=== PATIENT | male | born 1970 | race Caucasian/White ===

== ENCOUNTER → 2017-10-12 | Outpatient (CLI) | payer OTHER ==
--- NOTE | 2017-10-12 10:41 | US ---
EXAM DESCRIPTION: Extremity,Lower [place] Arteries CLINICAL HISTORY: 46 years Male, ATHEROSCLEROSIS OF OTHER ARTERIES COMPARISON: None. TECHNIQUE: Bilateral lower extremity arterial Doppler study utilizing grayscale, color Doppler, and spectral pulse Doppler evaluation. FINDINGS: Bilateral lower extremity arterial Doppler evaluation demonstrates patent vessels throughout both lower extremities with preserved triphasic waveform throughout from the level of the common femoral artery to the level of the trifurcation vessels including the distal posterior tibial artery and dorsalis pedis artery on both sides. Arterial peak velocities are normal throughout except for modestly diminished a peak systolic velocity in the right dorsalis pedis artery. Triphasic waveform is preserved suggesting a mild to modest stenosis at this level. IMPRESSION: Essentially normal examination except for diminished velocities in the right dorsalis pedis artery suggesting mild stenosis distally in this vessel but with preserved triphasic wave pattern. Normal appearance on the left. Electronically signed by: Saravanan Kelley MD 10/12/2017 10:39 AM CDT
== END ==
LOC: US 08:10
PROVIDERS: ATTEND Family Medicine
DX: I70.8 Atherosclerosis of other arteries (principal); I73.9 Peripheral vascular disease, unspecified

== ENCOUNTER → 2019-04-12 | Outpatient (CLI) | payer OTHER ==
--- NOTE | 2019-04-12 11:59 | MRI ---
Study: MRI of the Right Foot. MRI of the Right Ankle. Indication: PAIN IN RIGHT ANKLE Technique: Multiplanar, multi sequence MRI of the right foot and MRI of the right ankle were obtained without intravenous contrast. Comparison: None. Findings: Subcutaneous edema lateral aspect of the ankle. No acute fracture or talar coalition. Tenosynovitis of the peroneal tendons noted with high grade tendinosis of both tendons extending from the posterior margin of the lateral malleolus to their distal insertion sites. There is longitudinal split tearing of the brevis tendon and mild attenuation. High-grade tendinosis of the longus tendon at the cuboid notch with adjacent reactive marrow edema of the cuboid at this site. No complete transection of either tendon. The peroneal tubercle is mildly prominent. Ankle mortise alignment normal. No advanced osteoarthritis. Plantar fascia intact. Trace tenosynovitis medial tendons. Anterior tendons intact. Low-grade insertional Achilles tendinosis with trace retrocalcaneal bursal fluid. Prior sprain anterior talofibular ligament. No acute fluid filled tear of the medial or lateral ankle ligaments. Impression: Tenosynovitis and high-grade tendinosis of the peroneal tendons with longitudinal split tearing of the brevis tendon and severe tendinosis of the longus tendon at the cuboid notch. No transection. Marrow edema within the cuboid. Additional findings as above. Electronically signed by: Hudson Kong MD 04/12/2019 11:57 AM [facility]
== END ==
LOC: MRI 07:41
PROVIDERS: ATTEND Family Medicine
DX: M65.871 Other synovitis and tenosynovitis, right ankle and foot (principal)

== ENCOUNTER → 2019-12-07 | Outpatient (CLI) | payer OTHER ==
--- NOTE | 2019-12-07 17:31 | MRI ---
EXAM DESCRIPTION: Brain w/o Contrast: MRI. CLINICAL HISTORY: HEADACHE COMPARISON: None. TECHNIQUE: Multiplanar, high-field MRI unit, multiple diffusion sequences, multiple conventional sequences without contrast. FINDINGS: Normal FLAIR and T2-weighted signal in the periventricular white matter and sub-cortical white matter of the cerebral lobes.. Normal signal in the bilateral basal ganglia. Normal signal in the brainstem and cerebellar hemispheres.. Concordance of the diffusion and non-diffusion sequences with no diffusion restriction. Cortical sulci, ventricles, and other CSF spaces, and the subdural spaces are normally configured for patients age. No effacement or displacement. No midline shift. No extra-axial hemorrhage. Normal flow signal void in the major vessels of the [place], and the venous sinuses. IACs are symmetric bilaterally. Enlarged bilateral mastoid air cells, but no edema or fluid. Air in the sinuses resulting in artifact. No mass effect in the bilateral cerebellopontine angles. Pituitary gland occupies most of the sella. The sella and clivus is decreased in size, due to the enlarged sphenoid air cells. No abnormal fluid or thickening and air cells but increased air causing artifact. Base of the cerebellar tonsils is just above the level of the foramen magnum. No periosteal thickening in the posterior ethmoid air cells. Significant thickening of the turbinate mucosa, especially left of midline. Posterior septum deviates to the right with spur formation and anterior septum deviates to the left.. The bony calvarium is intact. IMPRESSION: 1. Normal noncontrast brain MRI scan with no evidence of intra-axial or extra-axial hemorrhage, extra-axial fluid, mass effect, cerebral edema, or midline shift. 2. Normal noncontrast MRI diffusion study with no evidence of significant ischemia or subacute/acute infarction. 3. Sphenoid sinuses and mastoid air cells are enlarged, a normal variant with increased volume of air causing artifact but no significant abnormalities are seen. 4. Chronic inflammatory changes in the ethmoid air cells and thickened mucosa in the nasal passageways with narrowing more on the left. Also septal deviation. Consider sinus radiographs and/or sinus CT scan which is a more sensitive examination to evaluate the paranasal sinuses. Electronically signed by: Wilfredo Ibanez MD 12/07/2019 5:29 PM CDT
== END ==
LOC: MRI 08:06
PROVIDERS: ATTEND Family Medicine
DX: J32.2 Chronic ethmoidal sinusitis (principal); J34.2 Deviated nasal septum

== ENCOUNTER 2019-12-14 11:46 | Emergency (ER) | payer OTHER ==
[2019-12-14] MEDS ORDERED: NITROGLYCERIN 0.4 MG 25 EA TAB SL ONE ×2 (12:00→12:02)
[2019-12-14] MEDS ORDERED: ASPIRIN TABLET 325 MG TAB PO ONE (12:05)
--- NOTE | 2019-12-14 12:19 | RAD ---
1 radiographic chest. 2. Radiographs of the Abdomen. Indication: head ache chest pain Comparison: None. Impression: Heart size normal. Lungs clear. No acute osseous abnormality. Lung apices not included in their entirety within the field of view on the frontal image. No free air. Bowel gas pattern nonspecific. No abnormal calcifications. No acute osseous abnormality. Electronically signed by: Hudson Kong MD 12/14/2019 12:18 PM CDT
[2019-12-14] MEDS ORDERED: ALUM & MAG HYDROX-SIMETHICONE 30 ML, LIDOCAINE VISCOUS 2% 15 ML PO ONE ×2 (12:55)
[2019-12-14] MEDS ORDERED: SUCRALFATE 1 GM/10 ML 1 GM UD PO ONE (12:55)
--- NOTE | 2019-12-14 15:59 | ED.PDOC ---
History of Present Illness - General Chief Complaint: Chest Pain/[place] Stated Complaint: chest pain Time Seen by Provider: 12/14/19 12:03 Source: patient Exam Limitations: no limitations - History of Present Illness Initial Comments: the patient is a 49-year-old male presented emergency room secondary to a feeling of mild chest pressure rated a 5 or 6 and mild shortness of breath since last night. He reports difficulty with sleeping through the night secondary to it. It is not made worse with activity. It is not made worse with exertion. No real nausea. He does have something of a history of reflux issues. The patient also reports intermittent headaches over the last 3 weeks or so. The first time the headaches came on were during intercourse. The patient had noticed intermittent episodes of chest pressure in the more distant past. These episodes were not related with exercise. In fact he had never had chest discomfort with exercise before. No fevers. No productive cough. No sore throat. No nausea or vomiting. No history of any coronary artery disease. The patient is tall and thin and in pretty good shape. He does have a positive family history of coronary artery disease. Chest pain was relieved down to a 1 or 2 with a dose of nitroglycerin and then was completely resolved with a GI cocktail. Chest discomfort have been fairly constant throughout the night totaling almost 18 hours prior to his arrival here. Timing/Duration: other - About 18 hours Severity: moderate Improving Factors: medication Worsening Factors: nothing Associated Symptoms: chest pain, shortness of breath Allergies/Adverse Reactions: Allergies NO KNOWN ALLERGY Allergy (Verified 12/14/19 12:02) Home Medications: Ambulatory Orders Famotidine 20 mg PO DAILY #30 tab 12/14/19 Losartan Potassium 100 mg PO DAILY 12/14/19 Nitroglycerin [Nitrostat] 0.4 mg SL Q5MIN PRN #1 bottle 12/14/19 Sucralfate Tab [Carafate Tab] 1 gm PO QID #120 tab 12/14/19 Review of Systems - Review of Systems Constitutional: States: no symptoms reported EENTM: States: no symptoms reported Respiratory: States: short of breath - Mild Cardiology: States: chest pain Gastrointestinal/Abdominal: States: see HPI Genitourinary: States: no symptoms reported Musculoskeletal: States: no symptoms reported Skin: States: no symptoms reported Neurological: States: no symptoms reported Endocrine: States: no symptoms reported Hematologic/Lymphatic: States: no symptoms reported All other Systems: No Change from Baseline Past Medical History (General) - Patient Medical History Hx Hypertension: Yes Hx Diabetes: No Family Medical History - Family History Mother Family History: No Known Physical Exam - Physical Exam General Appearance: Alert, Comfortable, No apparent distress Eye Exam: bilateral normal Ears, Nose, Throat: hearing grossly normal, normal pharynx Neck: full range of motion, supple Respiratory: lungs clear, normal breath sounds, no respiratory distress, no accessory muscle use Cardiovascular/Chest: normal peripheral pulses, regular rate, rhythm, no edema Peripheral Pulses: radial,right: 2+, radial,left: 2+ Gastrointestinal/Abdominal: non tender, soft Rectal Exam: deferred Back Exam: no CVA tenderness, no vertebral tenderness Extremity: non-tender, normal inspection, no pedal edema, normal capillary refill 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, alert, normal mood/affect, oriented x 3 Skin Exam: normal color Comments: Vital Signs - 24 hr 12/14/19 12/14/19 12/14/19 11:50 12:30 12:58 Temperature 97.2 F L Pulse Rate Pulse Rate [ 64 54 L 58 L right brachial] Respiratory 20 13 12 Rate Blood Pressure 170/95 147/85 150/90 [right brachial ] O2 Sat by Pulse 99 99 96 Oximetry 12/14/19 12/14/19 12/14/19 12:59 13:00 14:30 Temperature 97.2 F L Pulse Rate 55 L Pulse Rate [ 55 L 52 L 56 L right brachial] Respiratory 12 13 16 Rate Blood Pressure 158/91 156/96 156/89 [right brachial ] O2 Sat by Pulse 97 96 100 Oximetry Progress - Progress Progress: 12/14/19 16:02 The patient is a 49-year-old male presented emergency room secondary to somewhat atypical chest discomfort and intermittent headaches. Source of this is not entirely certain. The patient did not appear to have had a myocardial infarction and chest discomfort is resolved. Laboratory work, chest x-ray and EKGs are all reassuring. It is possible that the symptoms above may be related to terbinafine that he has been taking for the last month. This will be discontinued. The patient is going to be written for nitroglycerin for as needed use. He is additionally going to be written for famotidine and Carafate to take for the next month. He also needs to take 325 mg of aspirin daily for now. The patient is being set up with the same student services advisor that his mother uses as an outpatient. Obviously if symptoms are worsening or becoming more frequent, then we may need to send him on a more emergent basis. He does need to keep well-hydrated. ER warnings are given for any significant worsening. The plan has been discussed with Dr. Sauer. nael reyez 107 - Results/Orders Results/Orders: Initial and post nitroglycerin EKG essentially show heart rate in the mid 60s. Sinus rhythm. Mild right axis deviation. Normal R wave progression. No ST segment or T wave changes indicative of acute ischemia. Normal QT interval. Possibly mild left atrial dilation. Chest x-ray shows no significant infiltrates. No fluid overload. No cardiomegaly. no pneumothorax. Laboratory Tests 12/14/19 12/14/19 12/14/19 12:00 12:00 12:00 WBC 3.9 L RBC 4.72 Hgb 14.5 Hct 41.6 L MCV 88.2 MCH 30.8 MCHC 34.9 RDW 12.6 Plt Count 231 MPV 7.8 Absolute Neuts (auto) 2.50 Absolute Lymphs (auto) 0.90 L Absolute Monos (auto) 0.40 Absolute Eos (auto) 0.10 Absolute Basos (auto) 0.00 Neutrophils % 64.4 Lymphocytes % 22.1 Monocytes % 11.1 H Eosinophils % 1.9 Basophils % 0.5 PT 10.4 INR 1.05 PTT (SP) 23.6 D-Dimer, Quantitative < 131.0 L Sodium 138 Potassium 4.0 Chloride 100 L Carbon Dioxide 28 Anion Gap 14.0 BUN 13 Creatinine 0.81 BUN/Creatinine Ratio 16.0 Random Glucose 99 Serum Osmolality 275.8 Calcium 9.1 Magnesium 2.1 Total Bilirubin 0.8 AST 27 ALT 33 Alkaline Phosphatase 67 Creatine Kinase 128 CK-MB (CK-2) 1.7 CK-MB (CK-2) % Not Reportable Troponin I < 0.02 B-Natriuretic Peptide 14.4 Serum Total Protein 7.2 Albumin 4.6 Globulin 2.6 Albumin/Globulin Ratio 1.8 Amylase 75 TSH 1.94 Urine Color Urine Appearance Urine pH Ur Specific [place] Urine Protein Urine Glucose (UA) Urine Ketones Urine Blood Urine Nitrite Urine Bilirubin Urine Urobilinogen Ur Leukocyte Esterase Urine RBC Urine WBC Ur Epithelial Cells Urine Bacteria 12/14/19 12/14/19 12:55 14:55 WBC RBC Hgb Hct MCV MCH MCHC RDW Plt Count MPV Absolute Neuts (auto) Absolute Lymphs (auto) Absolute Monos (auto) Absolute Eos (auto) Absolute Basos (auto) Neutrophils % Lymphocytes % Monocytes % Eosinophils % Basophils % PT INR PTT (SP) D-Dimer, Quantitative Sodium Potassium Chloride Carbon Dioxide Anion Gap BUN Creatinine BUN/Creatinine Ratio Random Glucose Serum Osmolality Calcium Magnesium Total Bilirubin AST ALT Alkaline Phosphatase Creatine Kinase 111 CK-MB (CK-2) 1.5 CK-MB (CK-2) % Not Reportable Troponin I < 0.02 B-Natriuretic Peptide Serum Total Protein Albumin Globulin Albumin/Globulin Ratio Amylase TSH Urine Color Yellow Urine Appearance Clear Urine pH 7.0 Ur Specific [place] 1.015 Urine Protein Negative Urine Glucose (UA) Negative Urine Ketones Negative Urine Blood Negative Urine Nitrite Negative Urine Bilirubin Negative Urine Urobilinogen 0.2 Ur Leukocyte Esterase Negative Urine RBC 0 Urine WBC 0 Ur Epithelial Cells 0 Urine Bacteria 0 Departure - Departure Clinical Impression: Atypical chest pain Disposition: Discharge to Home or Self Care Condition: Fair Departure Forms: ED Discharge - Pt. Copy, Patient Portal Self Enrollment Diet: bland diet Activity: increase activity as tolerated Referrals: Isreal Sauer MD [Primary Care Provider] - 1-2 Weeks Prescriptions: Nitroglycerin [Nitrostat] 0.4 mg SL Q5MIN PRN #1 bottle PRN Reason: Chest Pain Sucralfate Tab [Carafate Tab] 1 gm PO QID #120 tab Famotidine 20 mg PO DAILY #30 tab Home Medications: Ambulatory Orders Famotidine 20 mg PO DAILY #30 tab 12/14/19 Losartan Potassium 100 mg PO DAILY 12/14/19 Nitroglycerin [Nitrostat] 0.4 mg SL Q5MIN PRN #1 bottle 12/14/19 Sucralfate Tab [Carafate Tab] 1 gm PO QID #120 tab 12/14/19 Additional Instructions: The patient is a 49-year-old male presented emergency room secondary to somewhat atypical chest discomfort and intermittent headaches. Source of this is not entirely certain. The patient did not appear to have had a myocardial infarction and chest discomfort is resolved. Laboratory work, chest x-ray and EKGs are all reassuring. It is possible that the symptoms above may be related to terbinafine that he has been taking for the last month. This will be discontinued. The patient is going to be written for nitroglycerin for as needed use. He is additionally going to be written for famotidine and Carafate to take for the next month. He also needs to take 325 mg of aspirin daily for now. The patient is being set up with the same student services advisor that his mother uses as an outpatient. Obviously if symptoms are worsening or becoming more frequent, then we may need to send him on a more emergent basis. He does need to keep well-hydrated. ER warnings are given for any significant worsening. The plan has been discussed with Dr. Sauer.
[2019-12-14 16:10] VITALS: BP 149/90; TEMP 97; O2SAT 99
== END 2019-12-14 16:26 | disposition home or self-care (01) ==
LOC: ER 11:46
DX: R07.89 Other chest pain (principal); R06.02 Shortness of breath; R51 Headache; I10 Essential (primary) hypertension; Z82.49 Family history of ischemic heart disease and other diseases of the circulatory system; Z79.899 Other long term (current) drug therapy